=== PATIENT | male | born 1995 | race Caucasian/White ===

== ENCOUNTER 2018-10-16 19:31 | Emergency (ER) | payer BC, OTHER ==
[2018-10-16 19:35] VITALS: BP 136/95; TEMP 98.2; BMI 28.1
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
[2018-10-16] MEDS ORDERED: diazePAM 2 MG TABLET PO ONE (20:39)
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
[2018-10-16] MEDS ORDERED: diazePAM 2 MG TABLET ONE (20:43)
[2018-10-16] MEDS ORDERED: diazePAM 5 MG TABLET PO ONE (23:14)
[2018-10-16] MEDS ORDERED: diazePAM 5 MG TABLET ONE (23:17)
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
[2018-10-17 00:26] VITALS: PULSE 94
--- NOTE | 2018-10-17 13:11 | EKG ---
Test Reason : Blood Pressure : / mmHG Vent. Rate : 126 BPM Atrial Rate : 126 BPM P-R Int : 136 ms QRS Dur : 094 ms QT Int : 318 ms P-R-T Axes : 072 073 039 degrees QTc Int : 460 ms SINUS TACHYCARDIA POSSIBLE LEFT ATRIAL ENLARGEMENT CANNOT RULE OUT LATERAL INFARCT , AGE UNDETERMINED ABNORMAL ECG NO PREVIOUS ECGS AVAILABLE Confirmed by HERBERT MARTIN MD ([id number]) on 10/17/2018 1:11:29 PM Referred By: Confirmed By:HERBERT MARTIN MD
== END 2018-10-17 00:34 | disposition home or self-care (01) ==
LOC: JERFT 19:31 → JER 19:31
DX: T14.8XXA Other injury of unspecified body region, initial encounter (principal); R00.0 Tachycardia, unspecified; E86.0 Dehydration; V47.5XXA Car driver injured in collision with fixed or stationary object in traffic accident, initial encounter; Y92.414 Local residential or business street as the place of occurrence of the external cause; Y93.89 Activity, other specified; Y99.8 Other external cause status
CPT/HCPCS: 93005; 93010; 99284-25